=== PATIENT | female | born 1960 | race Caucasian/White ===

== ENCOUNTER 2019-01-15 12:50 | Inpatient (IN) | payer OTHER ==
--- NOTE | 2019-01-01 08:22 | EKG ---
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 : 1960 Requested By: Tim Bloom Order Number: [id number] MD: Willian Askew Measurements Intervals [place] Rate: 68 P: 14 NC: 204 QRS: -2 QRSD: 88 T: 32 QT: 372 QTc: 396 Interpretive Statements Sinus rhythm Atrial premature complex Borderline prolonged NC interval Compared to ECG 05/22/2009 00:49:28 Atrial premature complex(es) now present Electronically Signed On 01-01-2019 8:21:58 EVENT MARKETING REPRESENTATIVE by Willian Askew [email or web address] <ELECTRONICALLY SIGNED> By: Willian Askew MD 01/01/19820 5 5 Willian Askew MD /REINIER
[2019-01-01 08:31] LABS: HEMATOCRIT 44.5 % (37.0-47.0); HEMOGLOBIN 14.4 gm/dL (12.0-15.0); MCH 28.7 pg (26.0-34.0); MCHC 32.4 g/dL (28.0-37.0); MCV 88.4 fL (80.0-100.0); RBC 5.03 mil/uL (4.20-5.00); RDW 14.5 % (10.5-14.5); WBC 8.5 thou/uL (4.0-11.0)
[2019-01-01 08:42] LABS: URINE BILIRUBIN NEGATIVE (Negative); URINE BLOOD NEGATIVE (Negative); URINE CLARITY CLEAR; URINE COLOR YELLOW; URINE GLUCOSE-RANDOM* NEGATIVE (Negative); URINE KETONES NEGATIVE (Negative); URINE LEUKOCYTES-REFLEX NEGATIVE (Negative); URINE NITRITE-REFLEX NEGATIVE (Negative); URINE PROTEIN (DIPSTICK) NEGATIVE (Negative); URINE UROBILINOGEN 0.2 E.U./dl (0.2-1.0)
[2019-01-01 08:43] LABS: ALBUMIN 4.3 g/dL (3.4-5.0); CALCIUM 10.9 mg/dL (8.5-10.1); POTASSIUM 4.1 mmol/L (3.5-5.1)
[2019-01-01 09:03] LABS: PROTIME 10.1 Seconds (9.3-11.4)
[~2019-01-15] VITALS: Ht 172.7 cm; Wt 121.1 kg
[~2019-01-15 12:50] MED LIST: ACIPHEX 20 MG T20 MG PO; ALBUTEROL NEB; ALEVE220 M1 PO; ASPIRIN PO; ATORVASTATIN CA20 MG PO; CLONAZEPAM 1 MG1 M1 PO; CLONAZEPAM PO; CRANBERRY200 MG PO; DILTIAZEM ER240 M1 PO; DYAZIDE PO; FLOMAX PO; GLUCOSAMINE &1 EAC1 PO; IBUPROFEN 600600 M1 PO; KLOR-CON 1010 MEQ PO; KLOR-CON20 MEQ PO; LASIX 40 MG TAB40 MG PO; MACROBID 100 M100 M1 PO; MICARDIS40 MG PO; MULTIVITAMINS1 EAC7 PO; NORCO 5-325 TA1 EACH PO; ORTHO NOVUM PO; PRILOSEC OTC20 MG PO; PROVENTIL17 G1 IH; QVAR HFA 440 MCG/UN1 INH; SINGULAIR 10 MG10 M1 PO; THEO-DUR200 MG PO; TRIAMTERENE-HC1 EAC1 PO; VITAMIN B-12500 MC3 PO; VITAMIN C1000 MG PO; ZETIA10 MG PO; ZOCOR 20 MG TAB20 M1 PO; ZOFRAN ODT4 MG PO
[2019-01-15 14:05] VITALS: BP 148/82
[2019-01-15 20:02] VITALS: BP 129/84
[2019-01-16 04:09] VITALS: BP 132/84
--- NOTE | 2019-01-16 04:39 | NUR ---
PT ARRIVED ON THE UNIT @1940 FROM OR. .A&OX4 WITH C/O PAIN IN LFT KNEE PAIN MEDS GIVEN SEE EMAR. ADM DONE AND PT ORIENTED TO ROOM. PT UP WITH ASSITX1 TO BSC. ORDER CALLED FOR PAIN MADES DUE TO NO RELIEF FROM HYDROCODONE. 4MG OF DILAUDID OREDERED PER DR CABALLERO. FALL PREC IN PLACE AND CALL LIGHT WITHIN REACH WILL CONT WITH POC TILL EOS.
[2019-01-16 06:16] LABS: HEMOGLOBIN 12.9 gm/dL (12.0-15.0); MCH 28.5 pg (26.0-34.0); MCHC 32.2 g/dL (28.0-37.0); MCV 88.6 fL (80.0-100.0); RBC 4.52 mil/uL (4.20-5.00); RDW 14.6 % (10.5-14.5); WBC 12.7 thou/uL (4.0-11.0)
[2019-01-16 07:30] VITALS: BP 104/64
--- NOTE | 2019-01-16 12:46 | NUR ---
ASSESSMENT-PT LIVES AT HOME ALONE ALONE. PT SAYS SHE GOT A BATH BENCH BUT WILL NEED A ROLLER WALKER FOR HOME. OFFERED DME OPTIONS AND SHE CHOSE [facility]. PT SAYS SHE HAS A CAREGIVER ARRANGED STARTING TOMORROW. PT STILL HAVING CONSIDERABLE PAIN AT THIS TIME. PT SAYS SHE HAS A BATH BENCH AT HOME. PT'S OUTPT THERAPIST WILL COME TO THE HOME TO WORK WITH HER A FEW TIMES THEN SHE WILL TRANSITION TO PREFERRED THERAPY ON AN OUTPT BASIS. NOTIFIED FRANKLIN FROM [facility] TO ISSUE PT A ROLLER WALKER FOR HOME USE. FOLLOWING TO ASSIST WITH DC PLANNING.
[2019-01-16 13:00] VITALS: BP 104/64
[2019-01-16 15:45] VITALS: BP 100/52
[2019-01-16 19:30] VITALS: BP 123/77
--- NOTE | 2019-01-17 04:36 | NUR ---
ASSUMED CARE OF PT @1900 PT ASSESSED AT START OF SHIFT WITH C/O PAIN PAIN MEDS GIVEN SEE EMAR. PT UP WITH ASSISTX1 TO BR. IV INTACT IN LFT HAND. SCD'S AND CIRA DRESSING INTACT. POLAR PACK IN PLACE. PT WAS RESTLESS EARLIER DURING THE SHIFT PAIN MEDS AND BENADRLYN GIVEN. FALL PREC IN PLACE AND CALL LIGHT WITHIN REACH WILL CONT WITH POC TILL EOS.
[2019-01-17 04:45] VITALS: BP 130/79
[2019-01-17 05:19] LABS: HEMATOCRIT 36.8 % (37.0-47.0); HEMOGLOBIN 12.1 gm/dL (12.0-15.0); MCH 29.1 pg (26.0-34.0); MCHC 32.8 g/dL (28.0-37.0); MCV 88.7 fL (80.0-100.0); RBC 4.15 mil/uL (4.20-5.00); RDW 14.7 % (10.5-14.5); WBC 10.7 thou/uL (4.0-11.0)
[2019-01-17 08:00] VITALS: BP 121/74
[2019-01-17] MEDS ORDERED: ASPIR 8181 MG PO (13:24)
[2019-01-17] MEDS ORDERED: NEURONTIN600 MG PO (13:24)
--- NOTE | 2019-01-17 15:03 | NUR ---
FRANKLIN FROM [facility] WILL ISSUE PT'S ROLLER WALKER THIS AFTERNOON. PT STIL HAVING A GREAT DEAL OF PAIN. ANTICIPATE HOME TOMORROW WITH CAREGIVER IF PAIN CONTROL IS ADEQUATE.
[2019-01-17 15:32] VITALS: BP 147/76
--- NOTE | 2019-01-17 19:34 | NUR ---
ASSUMED CARE OF THE PT AT 0700. PT IS IN ALOT OF PAIN AND PAIN HAS BEEN UPDATED AND IS BEING CONTROLLED BY PAIN MEDICATION, SEE EMAR. POLAR PACK, CIRA DRESSING AND SCD'S IN PLACE. THIGH HIGH MICHAEL HOSE BILATERAL. BLOCK DID NOT WORK DURING SX AND PT IS ANXIOUS TO WHY PAIN IS INTOLERABLE, RE-EDUCATED PT. STAT XRAY DONE ON THE L TIBIA, FEMUR AND KNEE. LUNGS ARE CLEAR. PT HAS A MILD FEVER AND MEDICATION WAS GIVEN WITH PAIN MED, SEE EMAR. PEDAL PULSES ARE CLEAR AND CAP REFILL IS LESS THAN 5. CALL LIGHT IS IN REACH AND FALL PRECAUTIONS ARE IN PLACE, BED IN THE LOWEST POSITION. WILL CONTINUE TO MONITOR THE PT.
[2019-01-17 20:50] VITALS: BP 117/71
[2019-01-17 23:47] VITALS: BP 147/61
[2019-01-18 02:30] VITALS: BP 120/73
[2019-01-18 05:43] LABS: HEMATOCRIT 35.5 % (37.0-47.0); HEMOGLOBIN 11.7 gm/dL (12.0-15.0); MCH 29.2 pg (26.0-34.0); MCHC 32.9 g/dL (28.0-37.0); MCV 88.6 fL (80.0-100.0); RBC 4.01 mil/uL (4.20-5.00); RDW 14.9 % (10.5-14.5); WBC 10.1 thou/uL (4.0-11.0)
[2019-01-18 09:35] VITALS: BP 117/70
--- NOTE | 2019-01-18 09:47 | NUR ---
PATIENT ALERT AND ORIENTED X4. DRESSING ON L KNEE INTACT WITH POLAR ICE ON. C/O PAIN. PAIN MED SCHEDULED. UP TO BATHROOM WITH MIN ASSIST. SLEPT OFF AND ON DURING NIGHT.
--- NOTE | 2019-01-18 17:22 | NUR ---
ASSUMED CARE OF THE PT AT 0700. PTS LUNGS ARE CLEAR. PEDAL AND RADIAL PULSES ARE STRONG, CAP REFILL IS LESS THAN 2 SECONDS. SCD'S, POLAR PACK AND CIRA DRESSING IN PLACE. PT BATHED TODAY AND WALKED WITH PT DOWN THE BYRD AND UP A STEP. PT WALKS WITH THE GAIT BELT AND WALKER. PAIN IS UNDER CONTROL BY PAIN MEDICATION, SEE EMAR. CALL LIGHT IS WITHIN REACH, BED IS IN THE LOWEST POSITION AND FALL PRECAUTIONS ARE IN PLACE. WILL CONTINUE TO MONITOR THE PT.
[2019-01-18 17:51] VITALS: BP 127/72
[2019-01-18 19:35] VITALS: BP 119/79
--- NOTE | 2019-01-19 01:30 | NUR ---
ASSUMED CARE OF PT @1900 PT ASSESSED AT START OF SHIFT. PAIN MEDS GIVEN FOR LFT KNEE PAIN. CIRA DRESSING AND POLAR PACK IN PLACE. PT UP WITH ASSISTX1 TO THE BATHROOM. C/O OF LFT KNEE STIFFNESS AMBULATED PT TO BACK OF AND HALLWAY AND BACK TO ROOM EDUCATED PT TO KEEP EXT STRENGTH. FALL PREC IN PLACE AND CALL LIGHT WITHIN REACH WILL CONT WITH POC TILL EOS.
[2019-01-19 02:30] VITALS: BP 125/77
[2019-01-19 05:12] VITALS: BP 125/77
[2019-01-19 09:20] VITALS: BP 125/73
--- NOTE | 2019-01-19 15:02 | NUR ---
Assumed care of pt at 0700. Pt a&ox4. Dressing c/d/i. Pt worked with physical therapy. Polar pack in place. Pain controlled with scheduled pain meds. Fall precautions in place. Pt will discharge home.
--- NOTE | 2019-01-20 08:58 | O ---
[facility] [place] [address] OPERATIVE REPORT Name: SIMIN WILLIAMSON SABRINA Room #: 443-P [facility] M.R.#: [id number] Admission: 01/16/19 Attend Phys: Tim Bloom MD Discharge: 01/19/19 Date of : 64 Report #: [id number] THIS REPORT FOR: //name// CC: Miko Bloom DATE OF SERVICE: 01/15/2019 PREOPERATIVE DIAGNOSIS: Left knee osteoarthritis. POSTOPERATIVE DIAGNOSIS: Left knee osteoarthritis. PROCEDURE: Left total knee arthroplasty using Navio robotic assistance. SURGEON: Tim Bloom MD. MANNEQUIN DECORATOR: Radha Snell PA-C. INDICATIONS FOR MANNEQUIN DECORATOR: Throughout the case, extensive retraction and manipulation of the knee was required. This was afforded to me by my speech language pathology assistant. ANESTHESIA: General with an adductor canal block. IMPLANTS: [employer] size 7 Journey II BCS Oxinium femur, size 5 tibia, size 32 patella and a size 11 polyethylene. TOURNIQUET TIME: 65 minutes. ESTIMATED BLOOD LOSS: 25 mL. COMPLICATIONS: None. SPECIMENS: None. CONDITION UPON LEAVING THE OPERATING ROOM: Stable. INDICATIONS FOR PROCEDURE: The patient is a 58-year-old female with left knee osteoarthritis. She failed conservative measures for this and after discussion with her, she elected for left total knee arthroplasty. DESCRIPTION OF PROCEDURE: Risks, benefits, alternatives, complications were discussed in detail with the patient including but not limited to risk of anesthesia, risk of damage to nerves, arteries, blood vessels, risk for infection, bleeding, risk for continued knee pain, need for reoperation. Informed consent was obtained from the patient. Left knee was appropriately marked in the preoperative holding area. IV clindamycin was given for [facility] [address] [place] [address] OPERATIVE REPORT Name: SIMIN WILLIAMSON SABRINA Room #: 443-P [facility] M.R.#: [id number] Admission: 01/16/19 Attend Phys: Tim Bloom MD Discharge: 01/19/19 Date of : 64 Report #: [id number] preoperative antibiotics. She was brought to the operating room and placed in the supine position on the operating room table. General anesthesia was induced without complication. Tourniquet was placed on the left thigh. Left lower extremity was prepped and draped in normal sterile fashion. Timeout was performed properly identifying the patient and procedure as well as the instrumentation and implants. All in the operating room were in agreement. Left lower extremity was exsanguinated, tourniquet was inflated. Tourniquet time was 65 minutes. Standard midline approach to the knee was made with 10 blade through the skin. Dissection was taken down sharply to the fascia and deep flaps were developed medially and laterally. Fresh 10 blade was used to make a medial parapatellar arthrotomy and the knee was inspected. There was severe tricompartmental osteoarthritis. ACL and PCL were removed sharply. Reference pins were placed in the femur and the tibia and the knee was digitally mapped using the Covelus robotic system. Intraoperative plan was made and we sized the size 7 femur with a size 5 tibia and size 10 spacer. After acceptance of the intraoperative plan, the distal femoral cut was made with a Navio bur. The size 7 distal femoral cutting block was pinned in place and the chamfer cuts were made on the femur. Attention was then turned to the tibia. The remainder of the menisci removed with Bovie cautery. Tibial resection guide was pinned in place using the Navio for placement and tibial resection was made. After this, flexion and extension gaps were checked and found to have good balance in flexion and extension both medially and laterally. Tibia was sized, found to be a size 5. A size 5 tibial trial was placed, pinned and punched. A size 7 femoral trial was placed and box cut was made. This was then trialed with size 10 and then a size 11 polyethylene and a size 11 polyethylene had the best range of motion and stability medially and laterally, both digitally as well as manually. A 9 mm was resected from the posterior surface of the patella and a size 32 patellar trial button was placed. Knee was taken through range of motion, found to be stable, found to have good patellar tracking. After this, trial components were removed. Bony ends were thoroughly irrigated with normal saline. Final size 5 tibia, size 7 Journey II BCS Oxinium femur and a size 32 patella were cemented in place using standard cementation techniques. While the cement cured, a periarticular injection consisting of morphine, ropivacaine, epinephrine and Toradol was placed around the knee joint capsule. After the cement cured, the tourniquet was deflated. Hemostasis was obtained with Bovie cautery. Final size 11 polyethylene was placed. A gram of vancomycin was placed deep in the joint. The fascia was closed with 0 Vicryl, skin was closed with 2-0 Vicryl, skin staple and a CIRA dressing was applied. The patient tolerated this procedure well and went to recovery room under care of anesthesia postoperatively. <ELECTRONICALLY SIGNED> By: Tim Bloom MD 01/20/19 0858 [id number] 1821 Tim Bloom MD /nt
== END 2019-01-19 16:00 | disposition home or self-care (01) | DRG 470 ==
LOC: OR 12:50 → 4S 18:21 → OR 01-16 15:45 → 4S 01-16 15:46
PROVIDERS: ADMIT Orthopaedic Surgery
DX: M17.12 Unilateral primary osteoarthritis, left knee (principal); Z88.6 Allergy status to analgesic agent; Z88.1 Allergy status to other antibiotic agents; Z88.0 Allergy status to penicillin; Z88.2 Allergy status to sulfonamides; Z88.8 Allergy status to other drugs, medicaments and biological substances
CPT/HCPCS: 10102; 50010; 50101; 50415; 50954; 51130; 51225; 51320; 51412; 52001; 52282; 53000; 53078; 54118; 55372; 56528; 57095; 57103; 57110; 57127; 62110; 62900; 64042; 70005

== ENCOUNTER 2021-02-02 12:23 | Emergency (ER) | payer OTHER ==
[~2021-02-02] VITALS: Ht 172.7 cm; Wt 127.0 kg
[~2021-02-02 12:23] MED LIST changes: +ASPIR 8181 MG PO; +NEURONTIN600 MG PO
[2021-02-02 16:29] VITALS: BP 154/85
== END 2021-02-02 16:29 | disposition home or self-care (01) ==
LOC: ER 12:23
DX: M79.605 Pain in left leg (principal); K21.9 Gastro-esophageal reflux disease without esophagitis; E78.5 Hyperlipidemia, unspecified; Z90.89 Acquired absence of other organs; Z98.890 Other specified postprocedural states; Z79.82 Long term (current) use of aspirin; Z79.891 Long term (current) use of opiate analgesic; Z79.899 Other long term (current) drug therapy; Z88.5 Allergy status to narcotic agent; Z88.0 Allergy status to penicillin; Z88.2 Allergy status to sulfonamides; Z88.8 Allergy status to other drugs, medicaments and biological substances; Z88.6 Allergy status to analgesic agent; Z88.1 Allergy status to other antibiotic agents; Z91.041 Radiographic dye allergy status